=== PATIENT | female | born 1980 | race Caucasian/White ===

== ENCOUNTER → 2017-06-22 | Outpatient (CLI) | payer BC ==
[2017-06-22 13:28] LABS: Basophils # (A) 0.1 k/uL (0-0.2); Basophils % (A) 1 %; Eosinophils # (A) 0.3 k/uL (0-0.7); Eosinophils % (A) 4 %; HCT 38.7 % (34.0-46.0); HGB 13.2 gm/dL (11.4-16.0); Lymphocytes # (A) 1.4 k/uL (1.0-4.8); Lymphocytes % (A) 21 %; MCH 27.9 pg (25.0-35.0); MCHC 34.1 g/dL (31.0-37.0); MCV 81.9 fL (80.0-100.0); Mean Platelet Volume 6.9; Monocytes # (A) 0.3 k/uL (0-1.0); Monocytes % (A) 4 %; Neutrophils # (A) 4.6 k/uL (1.3-7.7); Neutrophils % (A) 69 %; Platelet Count 285 k/uL (150-450); RBC 4.73 m/uL (3.80-5.40); RDW 12.1 % (11.5-15.5); WBC 6.7 k/uL (3.8-10.6)
== END | disposition home or self-care (01) ==
LOC: LABPAT 13:02
PROVIDERS: ATTEND Obstetrics & Gynecology
DX: Z01.812 Encounter for preprocedural laboratory examination (principal); O02.1 Missed abortion; Z3A.00 Weeks of gestation of pregnancy not specified
CPT/HCPCS: 36415; 84702; 85025

== ENCOUNTER 2017-06-23 06:13 | Day surgery (SDC) | payer BC ==
[2017-06-22 12:19] VITALS: BMI 37.4
--- NOTE | 2017-06-22 19:20 | P.HPOB ---
History of Present Illness H&P Date: 06/22/17 Chief Complaint: Missed This is a 36-year-old female 6 para 4 who presents for suction dilation and curettage secondary to missed . The patient started feeling some cramping on 06/19/2017 and noticed a small amount of blood when she wiped on . She had an ultrasound in the office on 06/20/2017 that showed a 7 week 6 day pole with no heart tones and a 9 week 1 day sac. A calcified yolk sac was also noted. By her last menstrual period she should've been almost 12 weeks. Her blood type is A+. labs: GC/chlamydia-negative Hepatitis B surface antigen-negative RPR-nonreactive Rubella-immune Light type-A+ Antibody screen-negative HIV-nonreactive Hemoglobin-12.4 Toxoplasma screen-positive for past immunity Random glucose-88 Obstetrical history: . History of 4 vaginal deliveries and 1 miscarriage. Gynecologic history: No history of sexual transmitted diseases. Social history: She is . She is not working outside the home. Review of Systems Constitutional: Denies chills, Denies fever Eyes: denies blurred vision, denies pain Ears, nose, mouth and throat: Denies headache, Denies sore throat Cardiovascular: Denies chest pain, Denies shortness of breath Respiratory: Denies cough Gastrointestinal: Reports heartburn Genitourinary: Reports pelvic pain (Mild cramping) Musculoskeletal: Denies myalgias Integumentary: Denies pruritus, Denies rash Neurological: Denies numbness, Denies weakness Psychiatric: Denies anxiety, Denies depression Past Medical History Past Medical History: GERD/Reflux History of Any Multi-Drug Resistant Organisms: None Reported Additional Past Surgical History / Comment(s): [place] teeth extracted Past Anesthesia/Blood Transfusion Reactions: No Reported Reaction Past Psychological History: No Psychological Hx Reported Smoking Status: Never smoker Past Alcohol Use History: Occasional Past Drug Use History: None Reported - Past Family History Mother Family Medical History: No Reported History Medications and Allergies Home Medications Medication Instructions Recorded Confirmed Type Multivitamins, Thera [Multivitamin 1 tab PO DAILY 06/22/17 06/22/17 History (formulary)] Allergies Allergy/AdvReac Type Severity Reaction Status Date / Time No Known Allergies Allergy Verified 06/22/17 12:44 Exam Osteopathic Statement: *. No significant issues noted on an osteopathic structural exam other than those noted in the History and Physical/Consult. - Vital Signs Vital signs: Intake and Output 06/22/17 06/22/17 06/22/17 06:59 14:59 22:59 Other: Weight 102.058 kg HEENT: Within normal limits Heart: Regular rate and rhythm Lungs: Clear to auscultation bilaterally Abdomen: Soft, nontender Pelvic exam: Uterus is slightly enlarged, and nontender, with no adnexal masses or tenderness noted Extremities: Negative Homans Assessment and Plan (1) Missed Status: Acute Code(s): O02.1 - MISSED SNOMED Code(s): 69514022 Plan: Proceed with suction dilation and curettage. I have discussed the risks, benefits, and alternative therapies for the above- mentioned procedure and for both sedation/anesthesia as well as necessary blood products administration, if indicated, as they pertain to this patient. The patient has indicated her understanding and acceptance of the risks and procedures discussed.
[~2017-06-23 06:13] MED LIST: DEXAMETHASONE SOD PHOSPHATE 10 MG/ML 1 ML VIAL IV ONE; MIDAZOLAM 2 MG/2 ML VIAL IV PRN; ONDANSETRON 4 MG/2 ML VIAL IVP ONE; Pre Op ABX Message 1 EACH MISC MISCELLANE ONE; SCOPOLAMINE 1.5MG/72HR PATCH TRANSDERM ONE; fentaNYL (PF) 50 MCG/ML 2 ML AMP IV PRN
[2017-06-23] MEDS ORDERED: LIDOCAINE 1% 20 ML VIAL (10MG/ML) FOR IV START INTRADERMA ONE (07:06)
[2017-06-23] MEDS: LACTATED RINGERS 1,000 ML IV SCH ×2 (07:17→07:36)
[2017-06-23] MEDS ORDERED: KETOROLAC 30 MG/ML 1 ML VIAL ONE (07:41)
[2017-06-23] MEDS ORDERED: MIDAZOLAM 2 MG/2 ML VIAL ONE (07:41)
[2017-06-23] MEDS ORDERED: fentaNYL (PF) 50 MCG/ML 2 ML AMP ONE (07:41)
[2017-06-23] MEDS ORDERED: LIDOCAINE 1% INJ 10MG/ML (20 ML MDV) ONE (07:41)
[2017-06-23] MEDS ORDERED: PROPOFOL 10 MG/ML 20 ML VIAL IV ONE (07:41)
--- NOTE | 2017-06-23 08:04 | P.OP ---
Date of Procedure: 06/23/17 Preoperative Diagnosis: Missed Postoperative Diagnosis: Same Procedure(s) Performed: Suction dilation and curettage Anesthesia: other (LMA general) Surgeon: Aletha Farah Estimated Blood Loss (ml): 20 Pathology: other (Products of conception) Disposition: same day Indications for Procedure: This is a 36-year-old female 6 para 4 who presents for suction dilation and curettage secondary to missed . The patient started feeling some cramping on 06/19/2017 and noticed a small amount of blood when she wiped on . She had an ultrasound in the office on 06/20/2017 that showed a 7 week 6 day pole with no heart tones and a 9 week 1 day sac. A calcified yolk sac was also noted. By her last menstrual period she should've been almost 12 weeks. Her blood type is A+. Operative Findings: Uterus is anteverted and sounded to 11 cm. No adnexal masses are palpated. A large amount of products of conception are obtained. Description of Procedure: The patient is taken to the operating room where she is placed in the dorsal lithotomy position. She is prepped and draped in the normal sterile fashion. Bladder is drained with a catheter and then removed. Examination is performed under anesthesia. Uterus is found to be slightly enlarged with no adnexal masses palpated. Next a weighted speculum was placed in the patient's vagina and a right angle retractor was used to visualize the anterior lip of the cervix. The anterior lip of the cervix is grasped with a single-tooth tenaculum. There is noted to be some scant bleeding from the cervical os. The uterus is sounded to 11 cm. The cervix is gently dilated with Dahl dilators until a 9 mm curved suction curet to be placed. Suction curetting was performed with a large amount of products of conception obtained. Next a medium -size sharp curet was gently introduced and gentle sharp curettage was performed with minimal further tissue obtained. Next section curetting was performed one further time to remove any blood clot from the intrauterine cavity. Single-tooth tenaculum was removed and pressure was applied for a few minutes. Once the pressure was released, no active bleeding was noted. All instruments are removed from the vagina. Sponge counts are correct. The patient is then taken to recovery room in stable condition.
[2017-06-23 08:09] VITALS: TEMP 97.3
[2017-06-23 09:11] VITALS: BP 104/71; PULSE 84; RESP 18
== END 2017-06-23 09:40 | disposition home or self-care (01) ==
LOC: OR 06:13
PROVIDERS: ATTEND Obstetrics & Gynecology
DX: O02.1 Missed abortion (principal); K21.9 Gastro-esophageal reflux disease without esophagitis
CPT/HCPCS: 88305; 59820; J2250; J1100; J2405; J2001; J3010; J1885; J2704; 86850; 86900; 86901

== ENCOUNTER → 2018-04-26 | Outpatient (CLI) | payer BC | LOC: LABWHC1 11:10 | PROVIDERS: ATTEND Obstetrics & Gynecology | DX: N92.6 Irregular menstruation, unspecified (principal) | CPT/HCPCS: 36415; 84702 ==

== ENCOUNTER → 2018-04-28 | Outpatient (CLI) | payer BC | LOC: LABWHC1 10:06 | PROVIDERS: ATTEND Obstetrics & Gynecology | DX: O26.819 Pregnancy related exhaustion and fatigue, unspecified trimester (principal); Z3A.00 Weeks of gestation of pregnancy not specified | CPT/HCPCS: 36415; 84702 ==

== ENCOUNTER → 2018-05-04 | Outpatient (CLI) | payer BC | END | disposition home or self-care (01) | LOC: LABWHC1 10:44 | PROVIDERS: ATTEND Obstetrics & Gynecology | DX: O26.819 Pregnancy related exhaustion and fatigue, unspecified trimester (principal); Z3A.00 Weeks of gestation of pregnancy not specified | CPT/HCPCS: 36415; 84702 ==

== ENCOUNTER 2018-11-20 16:00 | Outpatient (CLI) | payer BC ==
[2018-11-20 17:10] VITALS: BP 119/77; PULSE 114; RESP 16; TEMP 98.4
--- NOTE | 2019-01-30 00:12 | P.MSEPDOC ---
Presenting Problems - Arrival Data Date of Arrival on Unit: 11/20/18 Time of Arrival on Unit: 16:00 Mode of Transport: Ambulatory - Complaint OB-Reason for Admission/Chief Complaint: Possible Onset of Labor Comment: Pt presents with irregular, non painful contractions Medical History - Information : 5 Para: 4 Term: 4 : 0 Abortions: Spontaneous or Elective: 0 Number of Living Children: 4 - Gestational Age Gestational Age by DARRON (wks/days): 34 Weeks and 2 Days - History Complications: GDM Review of Systems - Review of Systems Constitutional: No problems Breast: No problems ENT: No problems Cardiovascular: No problems Respiratory: No problems Gastrointestinal: No problems Genitourinary: No problems Musculoskeletal: No problems Neurological: No problems Skin: No problems Vital Signs - Temperature Temperature: 98.4 F Temperature Source: Oral - Pulse Right Sitting Brachial Pulse Rate: 114 Pulse Assessment Method: Automatic Cuff - Respirations Respiratory Rate: 16 Oxygen Delivery Method: Room Air O2 Sat by Pulse Oximetry: 97 - Blood Pressure Right Arm Sitting Blood Pressure: 119/77 Blood Pressure Mean: 91 Blood Pressure Source: Automatic Cuff Medical Screen Scoring (Pre) - Cervical Exam Dilation: 0 cm = 0 Membranes: Intact - Uterine Contractions Frequency: > 5 minutes apart = 1 Duration: > 40 seconds = 2 Intensity: N/A - Maternal Vital Signs Maternal Temperature: N/A Maternal Blood Pressure: N/A Signs of Preeclampsia: N/A Maternal Respirations: N/A - Maternal Trauma Maternal Trauma: N/A - Assessment - Baby A Baseline FHR: 130 Heart Rate - NICHD Category: Category I (Normal) = 0 NST: Reactive Position: N/A Station: N/A - Total Score - Baby A Total Score - Baby A: 3 - Total Score - Baby B Total Score - Baby B: 3 - Total Score - Baby C Total Score - Baby C: 3 - Level of Risk - Baby A Level of Risk - Baby A: Low (0-5) - Level of Risk - Baby B Level of Risk - Baby B: Low (0-5) - Level of Risk - Baby C Level of Risk - Baby C: Low (0-5) Physician Notification (Pre) - Physician Notified Physician Notified Date: 11/20/18 Physician Notified Time: 17:00 Physician/Practitioner Notifed:: Don Spoke With: Don New Order Received: Yes - Notification Comment Comment: Spk c\\Dr. Ochoa, advsd pts of Dr. Banks, , 35 05/10, c/o "possible contractions" in [facility] this morning for weekly NST r/t GDM and AMA. Kristian q3-6 min, pts states no pain, just "annoying". FFN collected and held, SVE closed/thick, firm and posterior cervix; reactive NST. States to be d/c home, follow up as scheduled. Disposition - Disposition OB Disposition: Discharge to home, Written follow up instructions reviewed Discharge Date: 11/20/18 Discharge Time: 17:12 I agree with the RN Medical Screening Exam: Yes Risk & Benefit of care provided described in d/c instruction: Yes Diagnosis: FALSE LABOR BEFORE 37 COMPLETED WEEKS OF GEST, THIRD TRI
== END 2018-11-20 17:10 | disposition home or self-care (01) ==
LOC: FBPOP 16:00
PROVIDERS: ATTEND Obstetrics & Gynecology
DX: O47.03 False labor before 37 completed weeks of gestation, third trimester (principal); Z3A.34 34 weeks gestation of pregnancy
CPT/HCPCS: 59025; 99213

== ENCOUNTER 2018-12-24 06:08 | Inpatient (IN) | payer BC ==
--- NOTE | 2018-12-23 11:53 | P.HPOB ---
History of Present Illness H&P Date: 12/23/18 Chief Complaint: Induction of labor This is a 38-year-old female 8 para 4 with an estimated date of confinement of 12/30/2018, estimated gestational age of 39 and one sevenths weeks, who presents to labor and delivery for induction of labor secondary to advanced maternal age and gestational diabetes on insulin. She has been doing twice weekly nonstress tests and following with maternal medicine due to her gestational diabetes. It has been fairly well-controlled on metformin and insulin. She is feeling good movement. She has been feeling irregular contractions. labs: GC/comment is/Trichomonas-negative Hepatitis B surface antigen-negative RPR-nonreactive Rubella-immune Blood type-A+ Antibody screen-negative HIV-nonreactive Hemoglobin-12.6 Toxoplasma screen-positive IgG and negative IgM Random glucose-93 One hour Glucola-183 Group B streptococcus-positive Obstetrical history: . She has a history of 4 vaginal deliveries at term and 3 miscarriages. Gynecologic history: No history of sexual transmitted diseases. Social history: She is . She is not working outside of the home. Review of Systems Constitutional: Denies chills, Denies fever Eyes: denies blurred vision, denies pain Ears, nose, mouth and throat: Denies headache, Denies sore throat Cardiovascular: Denies chest pain, Denies shortness of breath Respiratory: Denies cough Gastrointestinal: Reports abdominal pain (Irregular contractions) Genitourinary: Reports pelvic pain, Reports Musculoskeletal: Reports low back pain Integumentary: Denies pruritus, Denies rash Neurological: Denies numbness, Denies weakness Psychiatric: Denies anxiety, Denies depression Past Medical History Past Medical History: GERD/Reflux History of Any Multi-Drug Resistant Organisms: None Reported Additional Past Surgical History / Comment(s): [place] teeth extracted, dilation and curettage Past Anesthesia/Blood Transfusion Reactions: No Reported Reaction Past Psychological History: No Psychological Hx Reported Smoking Status: Never smoker Past Alcohol Use History: Occasional Past Drug Use History: None Reported - Past Family History Mother Family Medical History: Hypertension Medications and Allergies Home Medications Medication Instructions Recorded Confirmed Type Cholecalciferol [Vitamin D3] 400 unit PO DAILY@1200 11/20/18 11/20/18 History Insulin NPH Human Isophane 14 unit SQ HS 11/20/18 11/20/18 History [NovoLIN N] Iron 18 mg PO DAILY 11/20/18 11/20/18 History Pnv No.95/Ferrous Fum/Folic AC 1 each PO DAILY 11/20/18 11/20/18 History [ Multivitamin Tablet] metFORMIN HCL [metFORMIN HCL ER 1,000 mg PO HS 11/20/18 11/20/18 History Osmotic] Allergies Allergy/AdvReac Type Severity Reaction Status Date / Time No Known Allergies Allergy Verified 11/20/18 16:17 Exam Osteopathic Statement: *. No significant issues noted on an osteopathic structural exam other than those noted in the History and Physical/Consult. HEENT: Within normal limits Heart: Regular rate and rhythm Lungs: Clear to auscultation bilaterally Abdomen: Cervix: 4 cm/70%/-1 station heart tones: Reactive Extremities: Negative Homans Assessment and Plan (1) 39 weeks gestation of Status: Acute Code(s): Z3A.39 - 39 WEEKS GESTATION OF SNOMED Code(s): 01383134 (2) Gestational diabetes mellitus (GDM) Status: Acute Code(s): O24.419 - GESTATIONAL DIABETES MELLITUS IN , UNSP CONTROL SNOMED Code(s): 58594369 (3) Advanced maternal age (AMA) in Status: Acute Code(s): CSM6505 - SNOMED Code(s): 636327958 (4) Group B Streptococcus carrier, +RV culture, currently Status: Acute Code(s): O99.820 - STREPTOCOCCUS B CARRIER STATE COMPLICATING SNOMED Code(s): 4473166129724 Plan: Careful monitoring of blood sugars. Antibiotic prophylaxis for group B streptococcus. Expectant management.
[2018-12-24 06:42] VITALS: RESP 16; BMI 39.9
[2018-12-24] MEDS ORDERED: CARBOPROST TROMETHAMINE 250 MCG/ML 1 ML AMP IM PRN (06:46)
[2018-12-24] MEDS ORDERED: OXYTOCIN 10 UNIT/ML 1 ML VIAL IM PRN (06:46)
[2018-12-24] MEDS ORDERED: AMPICILLIN 2,000 MG in SODIUM CHLORIDE 0.9% 100 ML IVPB STA (06:46)
[2018-12-24] MEDS ORDERED: OXYTOCIN 30 UNITS/500 ML NS 30 UNIT in SALINE 1 500ML.BAG IV SCH (06:46)
[2018-12-24] MEDS ORDERED: LIDOCAINE 0.5% (PF) 5 MG/ML (50 ML SDV) SQ PRN (06:46)
[2018-12-24] MEDS ORDERED: TERBUTALINE 1 MG/ML VIAL SQ PRN (06:46)
[2018-12-24] MEDS ORDERED: METHYLERGONOVINE 0.2 MG/ML 1 ML AMP IM PRN (06:46)
[2018-12-24] MEDS ORDERED: LIDOCAINE 1% 20 ML VIAL (10MG/ML) FOR IV START INTRADERMA PRN (06:46)
[2018-12-24] MEDS ORDERED: LACTATED RINGERS 1,000 ML IV SCH (06:46)
[2018-12-24 06:52] LABS: Glucose,Whole Blood 92 mg/dL (75-99)
[2018-12-24 07:43] LABS: Basophils % (A) 0 %; Eosinophils # (A) 0.2 k/uL (0-0.7); Eosinophils % (A) 3 %; HCT 31.6 % (34.0-46.0); HGB 10.9 gm/dL (11.4-16.0); Lymphocytes # (A) 1.3 k/uL (1.0-4.8); Lymphocytes % (A) 19 %; MCH 28.7 pg (25.0-35.0); MCHC 34.5 g/dL (31.0-37.0); MCV 83.2 fL (80.0-100.0); Mean Platelet Volume 7.9; Monocytes # (A) 0.3 k/uL (0-1.0); Monocytes % (A) 4 %; Neutrophils # (A) 4.6 k/uL (1.3-7.7); Neutrophils % (A) 71 %; Platelet Count 206 k/uL (150-450); RBC 3.79 m/uL (3.80-5.40); RDW 15.1 % (11.5-15.5); WBC 6.5 k/uL (3.8-10.6)
[2018-12-24] MEDS ORDERED: AMPICILLIN 1,000 MG in SODIUM CHLORIDE 0.9% 50 ML IVPB SCH (11:00)
[2018-12-24] MEDS ORDERED: ZOLPIDEM 5 MG TAB PO PRN (11:33)
[2018-12-24] MEDS ORDERED: BENZOCAINE/MENTHOL SPRAY 1 GM/SPRAY AEROSOL TOPICAL PRN (11:33)
[2018-12-24] MEDS ORDERED: diphenhydrAMINE 25 MG CAP PO PRN (11:33)
[2018-12-24] MEDS ORDERED: HYDROCORTISONE 2.5% RECTAL CREAM 30 GM TUBE RECTAL PRN (11:33)
[2018-12-24] MEDS ORDERED: diphenhydrAMINE 50 MG CAP PO PRN (11:33)
[2018-12-24] MEDS ORDERED: diphenhydrAMINE 50 MG/ML 1 ML VIAL IVP PRN ×2 (11:33)
[2018-12-24] MEDS ORDERED: LANOLIN CREAM 5 GM TUBE TOPICAL PRN (11:33)
[2018-12-24] MEDS ORDERED: ACETAMINOPHEN TAB 325 MG TAB PO PRN (11:33)
[2018-12-24] MEDS ORDERED: OXYTOCIN 20 UNITS/1000 ML NS 1,000 ML IV SCH (11:33)
[2018-12-24] MEDS ORDERED: SIMETHICONE 80 MG CHEWABLE PO PRN (11:33)
[2018-12-24] MEDS ORDERED: WITCH HAZEL 1 EACH MED..PAD TOPICAL PRN (11:33)
[2018-12-24 11:49] LABS: Hemoglobin A1C 5.3 % (4.0-6.0)
[2018-12-24] MEDS: IBUPROFEN 600 MG TAB PO PRN ×2 (12:15→18:13)
--- NOTE | 2018-12-24 12:49 | P.PROBDLV ---
Vaginal Delivery Note - . Vaginal Delivery Note: The patient progressed to complete dilation after oxytocin induction of labor and artificial rupture of membranes with clear fluid noted. She did receive 1 dose of antibiotic due to group B streptococcus positive. She sat up for an epidural but was unable to have an epidural placed due to feeling an urge to push. When she laid back down she was complete. She began pushing. Infant's head came to a crown. With one further push, the infant's head delivered across the perineum followed by the anterior shoulder. Nose and mouth were bulb suctioned at the perineum. With one further push, the remainder the infant easily delivered and was placed on mother's abdomen. Cord was clamped and cut and infant was taken to warmer for evaluation. A viable male infant was noted with scores of 8 at 1 minute and 9 at 5 minutes and infant weight of 7 lbs. 15 oz. Placenta delivered shortly thereafter, intact, with a three-vessel cord. Uterus contracted well after oxytocin was given and uterine massage was carried out. Inspection of the perineum revealed a small first-degree laceration. This area was anesthetized with 1% lidocaine and then sutured with 3-0 Vicryl suture in a running locked fashion. Estimated blood loss was approximately 100 mL's. Both mother and infant are in stable condition.
[2018-12-24] MEDS: SENNOSIDES-DOCUSATE SODIUM 1 EACH TAB PO SCH (20:43)
[2018-12-25] MEDS: IBUPROFEN 600 MG TAB PO PRN ×2 (00:46→06:45)
[2018-12-25 07:46] LABS: Basophils # (A) 0.1 k/uL (0-0.2); Basophils % (A) 1 %; Eosinophils # (A) 0.2 k/uL (0-0.7); Eosinophils % (A) 2 %; HCT 31.5 % (34.0-46.0); HGB 10.5 gm/dL (11.4-16.0); Lymphocytes # (A) 1.2 k/uL (1.0-4.8); Lymphocytes % (A) 16 %; MCHC 33.3 g/dL (31.0-37.0); Mean Platelet Volume 7.7; Monocytes # (A) 0.5 k/uL (0-1.0); Monocytes % (A) 6 %; Neutrophils # (A) 5.3 k/uL (1.3-7.7); Neutrophils % (A) 73 %; Platelet Count 212 k/uL (150-450); RBC 3.74 m/uL (3.80-5.40); RDW 13.5 % (11.5-15.5); WBC 7.3 k/uL (3.8-10.6)
[2018-12-25 08:11] VITALS: BP 129/76; PULSE 75; TEMP 98.2
[2018-12-25] MEDS: SENNOSIDES-DOCUSATE SODIUM 1 EACH TAB PO SCH (10:38)
--- NOTE | 2018-12-25 11:57 | P.DS ---
Providers Date of admission: 12/24/18 06:08 Expected date of discharge: 12/25/18 Attending physician: Aletha Farah Primary care physician: Stated None - Discharge Diagnosis(es) (1) Normal vaginal delivery Current Visit: Yes Status: Acute Hospital Course: Patient presented for induction of labor with gestational diabetes. She underwent a normal vaginal delivery. course uncomplicated. She'll be discharged home day #1 in stable condition follow-up with Dr. Farah in 6 weeks. Plan - Discharge Summary Discharge Rx Participant: No New Discharge Prescriptions: No Action metFORMIN HCL [metFORMIN HCL ER Osmotic] 1,000 mg PO HS Cholecalciferol [Vitamin D3] 400 unit PO DAILY@1200 Pnv No.95/Ferrous Fum/Folic AC [ Multivitamin Tablet] 1 each PO DAILY Iron 18 mg PO DAILY Insulin NPH Human Isophane [NovoLIN N] 14 unit SQ HS Discharge Medication List Cholecalciferol [Vitamin D3] 400 unit PO DAILY@1200 11/20/18 [History] Insulin NPH Human Isophane [NovoLIN N] 14 unit SQ HS 11/20/18 [History] Iron 18 mg PO DAILY 11/20/18 [History] Pnv No.95/Ferrous Fum/Folic AC [ Multivitamin Tablet] 1 each PO DAILY 11/20/18 [History] metFORMIN HCL [metFORMIN HCL ER Osmotic] 1,000 mg PO HS 11/20/18 [History] Follow up Appointment(s)/Referral(s): Aletha Farah DO [Doctor of Osteopathic Medicine] - 6 Weeks Discharge Disposition: HOME SELF-CARE
== END 2018-12-25 13:15 | disposition home or self-care (01) | DRG 807 ==
LOC: 4FBP 06:08
PROVIDERS: ADMIT Obstetrics & Gynecology; ATTEND Obstetrics & Gynecology
PROC: 10E0XZZ Delivery of Products of Conception, External Approach (ICD-10-PCS; principal; 2018-12-24)
PROC: 0HQ9XZZ Repair Perineum Skin, External Approach (ICD-10-PCS; 2018-12-24)
PROC: 10907ZC Drainage of Amniotic Fluid, Therapeutic from Products of Conception, Via Natural or Artificial Opening (ICD-10-PCS; 2018-12-24)
PROC: 3E033VJ Introduction of Other Hormone into Peripheral Vein, Percutaneous Approach (ICD-10-PCS; 2018-12-24)
PROC: 00HU33Z Insertion of Infusion Device into Spinal Canal, Percutaneous Approach (ICD-10-PCS; 2018-12-24)
PROC: 3E0R3BZ Introduction of Anesthetic Agent into Spinal Canal, Percutaneous Approach (ICD-10-PCS; 2018-12-24)
DX: O24.424 Gestational diabetes mellitus in childbirth, insulin controlled (principal); Z37.0 Single live birth; O99.824 Streptococcus B carrier state complicating childbirth; O99.62 Diseases of the digestive system complicating childbirth; K21.9 Gastro-esophageal reflux disease without esophagitis; O70.0 First degree perineal laceration during delivery; Z3A.39 39 weeks gestation of pregnancy; Z82.49 Family history of ischemic heart disease and other diseases of the circulatory system
CPT/HCPCS: 83036; 85025; 86850; 86900; 86901; 88307

== ENCOUNTER → 2022-11-11 | Outpatient (CLI) | payer BC ==
--- NOTE | 2022-11-11 08:05 | US ---
EXAMINATION TYPE: US thyroid st tissue head/neck DATE OF EXAM: 11/11/2022 COMPARISON: NONE CLINICAL INDICATION: Female, 42 years old with history of R49.0; h/o vocal cord nodules, patient stat es she is here at assess any nodules on the thyroid, hoarse voice GLAND SIZE: Right Lobe: 4.6 x 1.3 x 1.6 cm Overall Parenchyma: homogenous Left Lobe: 4.4 x 1.2 x 1.4 cm Overall Parenchyma: homogeneous Isthmus Thickness: 0.5 cm NODULES RIGHT: # of nodules measured on right: 0 LEFT: # of nodules measured on left: 1 1. 0.5 X 0.3 x 0.4 cm, mid, cystic or almost completely cystic, hypoechoic nodule, which is wider th an tall, with margins, without echogenic foci. Prior size: [facility] ISTHMUS: # of nodules measured in the isthmus: 0 Bilateral neck scanned, no evidence of lymphadenopathy. IMPRESSION: Benign-appearing cystic lesion. 2017 ACR TI-RADS LEVEL: TR1 *Highest TI-RADS level nodule reported
== END | disposition home or self-care (01) ==
LOC: RADUSWWP 06:51
PROVIDERS: ATTEND Family Medicine
DX: E04.1 Nontoxic single thyroid nodule (principal); J38.2 Nodules of vocal cords; R49.0 Dysphonia
CPT/HCPCS: 76536

== ENCOUNTER → 2024-04-24 | Outpatient (CLI) | payer BC ==
[2024-04-24 15:41] LABS: Chol/HDL Ratio 2.25 Ratio; LDL Cholesterol,Calculated 76.9 mg/dL (0.0-131.0)
[2024-04-24 15:42] LABS: ALT 26 U/L (8-44); AST 16 U/L (13-35); Albumin 4.4 g/dL (3.8-4.9); Albumin/Globulin Ratio 1.69 Ratio (1.60-3.17); Alkaline Phosphatase 72 U/L (41-126); Calcium 9.4 mg/dL (8.7-10.3); Carbon Dioxide 27.9 mmol/L (21.6-31.8); Chloride 101 mmol/L (96-109); Globulin 2.6 g/dL (1.6-3.3); Glucose 109 mg/dL (70-110); Potassium 4.4 mmol/L (3.5-5.5); Sodium 138 mmol/L (135-145); Total Bilirubin 0.2 mg/dL (0.3-1.2)
[2024-04-24 16:17] LABS: Basophils # (A) 0.06 X 10*3/uL (0.00-0.10); Basophils % (A) 0.9 %; Eosinophils # (A) 0.31 X 10*3/uL (0.04-0.35); Eosinophils % (A) 4.5 %; HCT 42.2 % (37.2-46.3); HGB 13.3 g/dL (12.0-15.0); Lymphocytes # (A) 1.75 X 10*3/uL (0.90-5.00); Lymphocytes % (A) 25.6 %; MCH 26.9 pg (27.0-32.0); MCHC 31.5 g/dL (32.0-37.0); MCV 85.3 FL (80.0-97.0); Mean Platelet Volume 10.2 FL (9.5-12.2); Monocytes # (A) 0.38 X 10*3/uL (0.20-1.00); Monocytes % (A) 5.6 %; NRBC Per 100 WBC 0 X 10*3/uL (0.00-0.01); Platelet Count 327 X 10*3/uL (140-440); RBC 4.95 X 10*6/uL (4.10-5.20); RDW 12.3 % (11.5-14.5); WBC 6.83 X 10*3/uL (4.50-10.00)
== END | disposition home or self-care (01) ==
LOC: LABWHC1 08:57
PROVIDERS: ATTEND Family Medicine
DX: Z00.00 Encounter for general adult medical examination without abnormal findings (principal)
CPT/HCPCS: 36415; 80053; 80061; 83036; 84443; 85025